=== PATIENT | male | born 1965 | race Hispanic/Latino ===

== ENCOUNTER 2018-05-05 18:39 | Emergency (ER) | payer OTHER ==
[2018-05-05 19:14] VITALS: BP 152/79; PULSE 78; RESP 16; TEMP 98; O2SAT 98
[2018-05-05] MEDS ORDERED: Tdap Vaccine 0.5 ml Vial (10-64 yrs) IM ONE ×2 (19:52→20:42)
[2018-05-05] MEDS ORDERED: Lidocaine 2% Inj (20ml) INFIL STA (19:52)
--- NOTE | 2018-05-05 20:15 | ED PDOC ---
Upper Extremity Pain/Injury Time Seen by Provider: 05/05/18 19:47 Chief Complaint (Nursing): Abnormal Skin Integrity Chief Complaint (Provider): Left Finger Laceration History Per: Patient History/Exam Limitations: no limitations Onset/Duration Of Symptoms: Hrs Current Symptoms Are (Timing): Still Present Quality: "Pain" Additional Complaint(s): 53 year old male presents to the ER for a laceration of the left middle phalanx of index finger onset tonight. He injured the site with a haul cane brakeman knife. Patient is unsure of his last tetanus shot. PMD: Benjamin White Past Medical History Reviewed: Historical Data, Nursing Documentation, Vital Signs Vital Signs: Last Vital Signs Temp 98.0 F 05/05/18 19:11 Pulse 78 05/05/18 19:11 Resp 16 05/05/18 19:11 BP 152/79 H 05/05/18 19:11 Pulse Ox 98 05/05/18 19:11 - Family History Family History: States: No Known Family Hx - Allergies Allergies/Adverse Reactions: Allergies Allergy/AdvReac Type Severity Reaction Status Date / Time No Known Allergies Allergy Verified 05/05/18 19:11 Physical Exam - Reviewed Nursing Documentation Reviewed: Yes Vital Signs Reviewed: Yes - Physical Exam Appears: Positive for: Non-toxic, No Acute Distress Head Exam: Positive for: ATRAUMATIC, NORMAL INSPECTION, NORMOCEPHALIC Skin: Positive for: Normal Color, Warm, Dry. Negative for: Rash Eye Exam: Positive for: Normal appearance Extremity: Positive for: Normal ROM (Able to flex and extend MCP, PIP, DIP), Other (1.5cm laceration on dorsal surface of left middle phalanx ) Neurologic/Psych: Positive for: Alert, Oriented (x3). Negative for: Motor/Sensory Deficits - ECG O2 Sat by Pulse Oximetry: 98 (RA) Pulse Ox Interpretation: Normal Medical Decision Making Medical Decision Making: Time: 1952 Tetanus 0.5ml Lidocaine 1% 20ML VIAL 3ml Reevaluation PROCEDURE: DIGITAL BLOCK Performed by: Eleonora Yi PA-C Location: left middle phalanx of index finger Preparation: The area was prepped and irrigated with 250ml of sterile water Procedure: Lidocaine 1% used for the digital block and 3 sutures placed Post-Procedure: The patient tolerated the procedure well, and there were no complications. Scribe Attestation: Documented by Adilia Bella, acting as a scribe for Eleonora Yi PA-C Provider Scribe Attestation: All medical record entries made by the Scribe were at my direction and personally dictated by me. I have reviewed the chart and agree that the record accurately reflects my personal performance of the history, physical exam, medical decision making, and the department course for this patient. I have also personally directed, reviewed, and agree with the discharge instructions and disposition. Procedures - Time-Out Type of Procedure: Digital Block Site of Procedure: left middle phalanx of index finger Correct Patient: Yes Correct Procedure: Yes Correct Site Marked: Yes X-Ray Marked: No Medication Recon: Yes Disposition - Clinical Impression Clinical Impression: Finger laceration - Patient ED Disposition Is Patient to be Admitted: No - Disposition Disposition: Routine/Home Disposition Time: 21:30 Condition: FAIR Additional Instructions: RETURN IN 7 DAYS FOR SUTURE REMOVAL Instructions: Laceration Repair With Stitches (DC) Forms: [facility] ED School/Work Excuse
[2018-05-05] MEDS ORDERED: Lidocaine 2% w Epi 1:100,000 Inj IJ ONE (20:51)
[2018-05-05] MEDS ORDERED: Lidocaine 1% Inj (20ml) ONE (21:00)
[2018-05-05] MEDS ORDERED: Lidocaine 1% Inj (20ml) INFIL STA (21:25)
== END 2018-05-05 21:30 | disposition home or self-care (01) ==
LOC: H.ER 18:39
DX: S61.211A Laceration without foreign body of left index finger without damage to nail, initial encounter (principal); W26.0XXA Contact with knife, initial encounter; Y93.9 Activity, unspecified; Z23 Encounter for immunization